=== PATIENT | female | born 1975 | race Asian ===

== ENCOUNTER 2023-08-14 07:56 | Inpatient (IN) | payer BC ==
[~2023-08-14] VITALS: Ht 154.9 cm; Wt 61.3 kg
[2023-08-14] MEDS ORDERED: BUPIVACAINE /PF 0.75% 10 ML VIAL INJ ONE (09:50)
[2023-08-14] MEDS ORDERED: KETOROLAC TROMETHAMINE 60 MG/2 ML VIAL IM PRN (11:00)
[2023-08-14] MEDS ORDERED: DIPHENHYDRAMINE INJ 50 MG/ML VIAL IM PRN (11:00)
[2023-08-14] MEDS ORDERED: LR 1,000 ML IV SCH (11:00)
[2023-08-14] MEDS ORDERED: NALOXONE HCL 0.4 MG/ML AMP (NARCAN) IVP PRN ×3 (11:00→12:15)
[2023-08-14] MEDS: MORPHINE SULFATE 10MG/10ML PF AMP SP ONE (11:00)
[2023-08-14] MEDS ORDERED: HYDROmorphone 1 MG/ML INJ. CARTRIDGE IVP PRN (12:15)
[2023-08-14] MEDS ORDERED: ONDANSETRON HCL 4 MG/2 ML VIAL IVP PRN (12:15)
[2023-08-14] MEDS ORDERED: VIT C (12:32)
[2023-08-14] MEDS ORDERED: VIT D (12:32)
[2023-08-14] MEDS ORDERED: LOESTRIN FE PO (12:32)
[2023-08-14] MEDS ORDERED: LOSA-413 PO (12:32)
[2023-08-14] MEDS ORDERED: VIT1CAPS25 PO (12:32)
[2023-08-14] MEDS ORDERED: D5/0.45 NS 1,000 ML IV SCH (14:30)
[2023-08-14] MEDS: KCL 10 mEq in D5/0.45NS 1000mL 1,000 ML IV SCH (16:49)
[2023-08-14] MEDS: ceFAZolin SODIUM 2 GM in D5W 100 ML IV SCH (16:54)
[2023-08-14 17:01] VITALS: BP_SYST 98; PULSE 92; RESP 16; TEMP 98.6; O2SAT 99
[2023-08-14] MEDS: ONDANSETRON HCL 4 MG/2 ML VIAL IVP PRN (17:21)
[2023-08-14] MEDS: D5NS 500 ML IV ONE (19:05)
[2023-08-14] MEDS: ALBUMIN HUMAN 25% 200 ML IV ONE (19:06)
[2023-08-14 19:08] LABS: BASOPHILS % (AUTO) 0.2 % (0.0-2.0); HEMATOCRIT 36.2 % (36-48); HEMOGLOBIN 12.4 g/dL (12.0-16.0); LYMPHOCYTES # (AUTO) 0.6 K/uL (1.0-5.5); LYMPHOCYTES % (AUTO) 2.9 % (20.5-51.5); MEAN CORPUSCULAR HEMOGLOBIN 31 pg (27-31); MEAN CORPUSCULAR HGB CONC 34 % (32-36); MEAN CORPUSCULAR VOLUME 90 fL (79.0-98.0); MONOCYTES # (AUTO) 0.6 K/uL (0.0-1.0); NEUTROPHILS # (AUTO) 19.9 K/uL (1.8-7.7); NEUTROPHILS % (AUTO) 93.9 % (40.0-70.0); PLATELET COUNT (AUTO) 289 K/uL (130-430); RED BLOOD CELL COUNT(AUTO) 4.04 MIL/uL (4.2-6.2); WHITE BLOOD COUNT (AUTO) 21.2 K/uL (4.8-10.8)
[2023-08-14 19:46] VITALS: O2SAT 99
[2023-08-14 20:10] VITALS: BP_SYST 95; PULSE 94; RESP 18; TEMP 97.3; O2SAT 99
[2023-08-14] MEDS: SIMETHICONE 80 MG TAB.CHEW PO SCH (20:55)
[2023-08-14 23:20] VITALS: BP_SYST 95; PULSE 93; RESP 16; TEMP 97.7; O2SAT 98
[2023-08-14] MEDS: TEMAZEPAM 7.5 MG CAPSULE PO PRN (23:37)
[2023-08-15] VITALS (7 sets, daily range): BP systolic 101–120; PULSE 76–84; RESP 16–18; TEMP 97.4–98.4; O2SAT 95–99
[2023-08-15] MEDS: D5NS 1,000 ML IV SCH (02:46)
[2023-08-15 04:04] LABS: BASOPHILS % (AUTO) 0.1 % (0.0-2.0); EOSINOPHILS % (AUTO) 0.1 % (0.0-4.0); HEMATOCRIT 25.6 % (36-48); HEMOGLOBIN 8.9 g/dL (12.0-16.0); LYMPHOCYTES # (AUTO) 1.3 K/uL (1.0-5.5); LYMPHOCYTES % (AUTO) 11.4 % (20.5-51.5); MEAN CORPUSCULAR HEMOGLOBIN 31 pg (27-31); MEAN CORPUSCULAR HGB CONC 35 % (32-36); MEAN CORPUSCULAR VOLUME 90 fL (79.0-98.0); MONOCYTES # (AUTO) 0.7 K/uL (0.0-1.0); MONOCYTES % (AUTO) 6.5 % (1.7-9.3); NEUTROPHILS # (AUTO) 9.1 K/uL (1.8-7.7); NEUTROPHILS % (AUTO) 81.9 % (40.0-70.0); PLATELET COUNT (AUTO) 221 K/uL (130-430); RED BLOOD CELL COUNT(AUTO) 2.85 MIL/uL (4.2-6.2); RED CELL DISTRIBUTION WIDTH 13.6 % (9.0-15.0); WHITE BLOOD COUNT (AUTO) 11.1 K/uL (4.8-10.8)
[2023-08-15] MEDS: OXYCODONE/ACETAMINOPHEN 5-325 TABLET PO PRN ×2 (09:34→17:54)
[2023-08-15] MEDS: BISACODYL 10 MG/SUPPOSITORY RC ONE (12:35)
[2023-08-15] MEDS: TEMAZEPAM 15 MG CAPSULE PO SCH (21:14)
[2023-08-16] VITALS: BP_SYST 107; PULSE 86; RESP 18; TEMP 98.1; O2SAT 95
[2023-08-16 07:08] LABS: BASOPHILS % (AUTO) 0.3 % (0.0-2.0); EOSINOPHILS # (AUTO) 0.1 K/uL (0.0-0.4); EOSINOPHILS % (AUTO) 1.2 % (0.0-4.0); HEMATOCRIT 27.3 % (36-48); HEMOGLOBIN 9.7 g/dL (12.0-16.0); LYMPHOCYTES # (AUTO) 2.9 K/uL (1.0-5.5); LYMPHOCYTES % (AUTO) 27.1 % (20.5-51.5); MEAN CORPUSCULAR HEMOGLOBIN 32 pg (27-31); MEAN CORPUSCULAR HGB CONC 36 % (32-36); MEAN CORPUSCULAR VOLUME 90 fL (79.0-98.0); MONOCYTES # (AUTO) 0.7 K/uL (0.0-1.0); MONOCYTES % (AUTO) 6.2 % (1.7-9.3); NEUTROPHILS % (AUTO) 65.2 % (40.0-70.0); PLATELET COUNT (AUTO) 243 K/uL (130-430); RED BLOOD CELL COUNT(AUTO) 3.02 MIL/uL (4.2-6.2); RED CELL DISTRIBUTION WIDTH 13.9 % (9.0-15.0); WHITE BLOOD COUNT (AUTO) 10.7 K/uL (4.8-10.8)
[2023-08-16 08:00] VITALS: BP_SYST 117; PULSE 88; RESP 18; TEMP 98.8; O2SAT 99
[2023-08-16] MEDS: CEFAZOLIN SOD 2 GM in D5W 50 ML IV ONE (08:00)
[2023-08-16 12:00] VITALS: BP_SYST 154; PULSE 87; RESP 18; TEMP 98; O2SAT 96
[2023-08-16 16:00] VITALS: BP_SYST 165; PULSE 86; RESP 18; TEMP 98.2; O2SAT 99
[2023-08-16] MEDS: HYDROcodone/ACETAMIN 5-325 MG TAB (NORCO/ VICODIN) PO PRN (18:01)
[2023-08-16 20:00] VITALS: BP_SYST 167; PULSE 87; RESP 16; TEMP 98.5; O2SAT 98
[2023-08-16] MEDS: LOSARTAN POTASSIUM 50 MG TABLET (COZAAR) PO SCH (20:39)
[2023-08-17] VITALS: BP_SYST 151; PULSE 86; RESP 16; TEMP 98.4; O2SAT 98
[2023-08-17 08:00] VITALS: BP_SYST 152; PULSE 88; RESP 18; TEMP 98.7; O2SAT 99
[2023-08-17 09:40] VITALS: O2SAT 99
[2023-08-17 11:58] VITALS: BP_SYST 151; PULSE 88; RESP 18; TEMP 98.7; O2SAT 99
[2023-08-17 12:20] VITALS: BP_SYST 139; PULSE 81; RESP 16; TEMP 97.4; O2SAT 96
[2023-08-17] MEDS ORDERED: LOSARTAN POTASSIUM 50 MG TABLET (COZAAR) PO SCH (21:00)
== END 2023-08-17 13:40 | disposition home or self-care (01) | DRG 743 ==
LOC: SMU 07:56
PROVIDERS: ADMIT Specialist; ATTEND Specialist
PROC: 0UT20ZZ Resection of Bilateral Ovaries, Open Approach (ICD-10-PCS; 2023-08-14)
PROC: 0UN20ZZ Release Bilateral Ovaries, Open Approach (ICD-10-PCS; 2023-08-14)
PROC: 0TNB0ZZ Release Bladder, Open Approach (ICD-10-PCS; 2023-08-14)
PROC: 0DN80ZZ Release Small Intestine, Open Approach (ICD-10-PCS; 2023-08-14)
PROC: 0UT70ZZ Resection of Bilateral Fallopian Tubes, Open Approach (ICD-10-PCS; principal; 2023-08-14 10:03)
DX: N83.201 Unspecified ovarian cyst, right side (principal); N83.202 Unspecified ovarian cyst, left side; R10.2 Pelvic and perineal pain; N73.6 Female pelvic peritoneal adhesions (postinfective); N80.9 Endometriosis, unspecified; I95.9 Hypotension, unspecified; D64.9 Anemia, unspecified; Z79.899 Other long term (current) drug therapy
CPT/HCPCS: 36415; 85025; 87081; 88307; J0690; J1200; J1885; J2274; J2405; J2704; J2710; J2765; J3465; J3490; J7060; J7120